=== PATIENT | male | born 1965 | race Caucasian/White ===

== ENCOUNTER 2019-05-06 00:44 | Outpatient (CLI) | payer BC, SELFPAY ==
--- NOTE | 2019-05-06 07:03 | DI.RAD_ITS ---
SYMPTOM/DIAGNOSIS: RT HIP INJECTION, ARTHRITIS RT HIP, PRIMARY OA, M16.11 RIGHT HIP INJECTION: Fluoroscopy Time: 10.3 seconds Fluoroscopy was utilized by Dr. Booth during the performance of a right hip injection. Please refer to the procedure report for complete details. A single hard copy image shows contrast confirming an intra-articular location.
--- NOTE | 2019-05-06 09:43 | W.PROCNOTE ---
Date of service: 05/06/19 Time of Service: 09:43 Procedure Note Date of procedure: 05/06/19 Procedure: Right Hip Injection with Fluoroscopic Guidance Surgeon/Proceduralist/Physician: Kevin Booth Procedure Diagnosis: Right Hip Impingement Procedure Indications: Rch has had persistent pain of the RIGHT hip and groin. He has had success with a previous injection and other conservative measures have been tried. To serve as therapeutic, an injection under fluoroscopy was recommended. I had discussed the risks of the procedure and the patient elected to proceed. Procedure Description: Thony was greeted in the flouroscopy room. The correct side was identified and the consent was reviewed with the patient and signed. The patient was then placed in the supine position on the fluoroscopy table. The RIGHT hip was then prepped with Chloraprep. The anterolateral injection starting point was identiifed by bony landmarks and fluoroscopy. The skin and soft tissue in the tract of the injection was anesthetized with 1% Lidocaine. A spinal needle was then inserted deep into the hip joint at the level of the lateral femoral neck under fluoroscopic guidance. A small amount of Omnipaque solution was injected to confirm intraarticular placement. Once confirmed, the hip was injected with 6cc of 0.5% Bupivicaine and 80mg of Depo-Medrol. A bandaid was placed on the injection site. The patient tolerated the procedure well and noted improvement in pre-injection pain.
[2019-05-06] MEDS: Omnipaque 300 MG/ML 10 ML BTL IJ (10:42)
[2019-05-06] MEDS: Bupivacaine 0.5% Pres-Free 10 ML VIAL IJ (10:43)
[2019-05-06] MEDS: methylPREDNISolone ACETATE 80 MG/ML VIAL IM (10:44)
== END 2019-05-06 01:04 ==
PROVIDERS: Visit Provider Student in an Organized Health Care Education/Training Program
DX: M16.11 Unilateral primary osteoarthritis, right hip (principal); M25.551 Pain in right hip
CPT/HCPCS: 20610; 77002; J1040

== ENCOUNTER 2019-10-06 13:34 | Outpatient (CLI) | payer BC, SELFPAY ==
--- NOTE | 2019-10-06 14:00 | DI.RAD_ITS ---
EXAM: XR PELVIS AP INDICATION: right hip DJD. COMPARISON: RT HIP COMPLETE AP PELVIS from 12/09/2016 TECHNIQUE: 2D digital imaging was performed. FINDINGS: Joint spaces appear symmetric and well maintained. The bones are normally mineralized. The soft tis sues are unremarkable.
== END 2019-10-06 13:54 ==
PROVIDERS: Visit Provider Student in an Organized Health Care Education/Training Program
DX: M16.11 Unilateral primary osteoarthritis, right hip (principal)
CPT/HCPCS: 72170

== ENCOUNTER 2019-10-06 13:54 | Outpatient (CLI) | payer BC, SELFPAY ==
--- NOTE | 2019-10-06 13:07 | HPE_ITS ---
Assessment and Plan Assessment and plan (1) Degenerative joint disease of right hip: Status: Chronic Assessment and plan: Plan: AP pelvis x-ray with mag marker was ordered for pre-operative planning. Patient is a reliable historian and denies any areas of skin breakdown along the left groin and anterior leg. Educated patient that if they develop any lesions, redness or skin breakdown to contact office as skin concerns would be a reason to cancel surgery. Patient gives verbal understanding. Educated patient on surgery covering surgical technique via models, recovery process, benefits and risks including but not limited to risk of infection, blood clot, fracture, numbness/tingling, leg discrepancy and damage to soft tissue/blood vessels/nerves in detail. After discussion patient gives verbal understanding of risks and elects to proceed with scheduling surgery. Patient had opportunity to have questions answered to their satisfaction. They will contact office if issues arise. Patient will continue to be scheduled for right total hip replacement with Dr. Booth. Qualifiers: Osteoarthritis type: primary Qualified Code(s): M16.11 - Unilateral primary osteoarthritis, right hip History of Present Illness Narrative: Mr. Cortés presents to clinic for pre-operative visit for scheduled right SHLOMO with Dr. Booth. Patient has been experiencing right hip pain for several years. Describes intermittent right hip pain located along the groin as well as laterally. In addition states referred pain down to knee as well as a numbness and tingling along the lateral side of his hip down to the knee that has been ongoing for a few years. Denies any radiation of symptoms down to the foot. Pain is described as intermittent based on sitting position and with movement. He has had to significantly reduce exercises due to pain. Denies any pain on stairs or with getting dressing. Denies any trauma to the right hip. Recently started taking CBD oil which helps reduce his day-to-day discomfort. Reports his injections under fluroscopy provide complete relief for approximately 2 months; his last injection was done on 05/06/19. Denies any recent falls or injuries. Due to his continued pain and DJD he was offered surgical intervention and elected to proceed. Pertinent Surgical Information Denies past medical history of: Hypertension, stroke, cardiac issues, angina, asthma, COPD, sleep apnea, renal issues, liver issues, hepatitis, gastrointestinal issues, ulcers, hyperlipidemia, bleeding disorders, seizures, migraines, anxiety, depression, diabetes, autoimmune disorders, thyroid issues Denies prior complications from surgery or anesthesia. Review of Systems Constitutional Constitutional: Denies fever(s), Denies frequent falls and Denies headache(s) Eyes Eyes: Denies change in vision ENT Ears, Nose, Mouth, and Throat: Denies dizziness, Denies ear discharge, Denies headache(s), Reports epistaxis (left nostril is narrow; reports yearly bloody nose in the left nare), Denies nasal discharge, Denies nasal trauma and Denies sore throat Cardiovascular Cardiovascular: Denies chest pain, Denies rapid heart rate, Denies irregular heart rhythm, Denies palpitations, Denies dyspnea, Denies dyspnea on exertion, Denies orthopnea, Denies paroxysmal nocturnal dyspnea and Denies slow heart rate Respiratory Respiratory: Denies cough, Denies dyspnea, Denies dyspnea on exertion and Denies wheezing Gastrointestinal Gastrointestinal: Denies abdominal pain, Denies melena, Denies hematochezia, Denies constipation, Denies diarrhea, Denies nausea and Denies vomiting Genitourinary Genitourinary: Denies hematuria, Denies dysuria and Denies urinary urgency Musculoskeletal Musculoskeletal: Reports as per HPI, Reports numbness and Reports tingling (see HPI) Neurologic Neurologic: Denies dizziness, Denies frequent falls, Denies headache(s), Reports numbness and Reports tingling (see HPI) Psychiatric Psychiatric: Denies anxiety and Denies depression Endocrine Endocrine: Denies palpitations Allergic/Immunologic Allergic/Immunologic: Denies wheezing [facility] Medical History (Updated 10/06/19 @ 13:50 by Mallory Arriaga) Degenerative joint disease of right hip (Chronic) Surgical History (Updated 10/06/19 @ 13:15 by Mallory Arriaga) S/P left knee surgery (Acute) Reports history of 5 total surgeries in his left knee including complete reconstruction, MCL and ACL Completed in [facility] and [facility] Sep 1982; March and April 1983; Aug 1986 and Oct 2010 Status post tonsillectomy and adenoidectomy (Acute) Social History (Updated 10/06/19 @ 13:16 by Mallory Arriaga) Smoking/Tobacco Use Status: Never Alcohol Intake: current Alcohol Intake frequency: holidays/special occasions only Drug use: Never 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 [employer] Current gender identity: male Meds Home Medications and Allergies Allergies Allergy/AdvReac Type Severity Reaction Status Date / Time No Known Allergies Allergy Unverified 10/06/19 13:16 Exam Const General: cooperative and no acute distress [facility] Head: normal to inspection, normocephalic and atraumatic Ears: external ears normal General nose exam: external nose normal and no nasal discharge Face and sinus: face symmetric Mouth: oral mucosae normal, lip normal, tongue normal and moist mucous membranes Teeth and gingiva: dentition normal Throat: posterior oropharynx normal Eyes General: appearance normal, both eyes and all related structures Pupils: PERRL EOM: EOM intact bilaterally Neck Neck: trachea midline Carotids: normal carotid upstroke Lymphatic: no lymphadenopathy noted Resp Effort & Inspection: normal respiratory effort and able to speak in complete sentences Auscultation: clear to auscultation bilaterally, no rales, no rhonchi and no wheezes Cardio Heart Sounds: S1 normal, S2 normal and no murmurs Pulses: radial pulses present bilaterally Skin General skin exam: no rashes or lesions noted
[2019-10-06 14:38] LABS: HCT 39.9 % (40.0-50.0); HGB 13.6 g/dL (13.5-17.5); Mean Corp. HGB Concentration 34.1 g/dL (32.0-36.0); Mean Corpuscular Hemoglobin 31.1 pg (27.0-33.0); Mean Corpuscular Volume 91.1 fL (80-95); Mean Platelet Volume 9.5 fL (8.0-11.0); Platelet Count 263 x1000/uL (130-400); RBC 4.38 m/cumm (4.50-6.00); RBC Distribution Width 12.9 % (11.8-14.1); White Blood Cell Count 5.57 k/cumm (4.4-10.8)
[2019-10-06 15:38] LABS: BUN 20 mg/dL (7-18); CREATININE 0.93 mg/dL (0.70-1.30); Calcium 9.4 mg/dL (8.5-10.1); Chloride 103 mmol/L (98-107); Glucose 102 mg/dL (74-106); Potassium 4.1 mmol/L (3.5-5.1); Sodium 142 mmol/L (136-145)
== END 2019-10-06 14:14 ==
PROVIDERS: Visit Provider Student in an Organized Health Care Education/Training Program
DX: M25.561 Pain in right knee (principal); M16.11 Unilateral primary osteoarthritis, right hip; Z01.818 Encounter for other preprocedural examination; Z01.812 Encounter for preprocedural laboratory examination
CPT/HCPCS: 36415; 80048; 85027; 86850; 86900; 86901; NC

== ENCOUNTER 2019-10-15 10:32 | Inpatient (IN) | payer BC, SELFPAY ==
[2019-10-06 14:06] VITALS: BP 119/75; PULSE 62; RESP 16; TEMP 37; O2SAT 97
[2019-10-15] VITALS (8 sets, daily range): BP systolic 70–128; BP diastolic 37–83; PULSE 59–73; RESP 11–19; TEMP 36–36.6; O2SAT 95–99
[2019-10-15] MEDS: Lactated Ringers 1,000 ML 80 ML IV ×2 (11:12→16:03)
[2019-10-15] MEDS: Acetaminophen 500 MG TAB 1000 MG PO (11:26)
[2019-10-15] MEDS: Celecoxib 200 MG CAP 400 MG PO (11:26)
[2019-10-15] MEDS: ceFAZolin 2 GM/50 ML BAG IVPB (13:35)
--- NOTE | 2019-10-15 14:50 | DI.RAD_ITS ---
EXAM: XR HIP RT IN OR CLINICAL HISTORY: total hip arthroplasty TECHNIQUE: 2D and realtime digital imaging was performed. Fluoroscopy was provided in the OR COMPARISON: No exams were available for comparison FINDINGS: C-arm fluoroscopy was utilized by Dr. Booth during right total hip joint replacement. Hard copies show the components in good position. IMPRESSION:
--- NOTE | 2019-10-15 15:33 | W.PM.DS.N ---
Date of service: 10/15/19 Time of Service: 15:33 DS: Diagnosis Discharge Diagnosis (1) Degenerative joint disease of right hip: Status: Chronic Discharge Plan Disposition Patient Disposition: HOME Condition: Good Discharge Details Reason For Visit: (R) HIP TOTAL Admit Date/Time: 10/15/19 10:32 Admit Provider: Kevin Booth Attending Provider: Kevin Booth Primary Care Provider: None,None Hospital Course Hospital Course: Patient was admitted to the medical/surgical floor following the procedure. It was tolerated well without any notable medical, surgical, or anesthetic complications. Mobilization began postoperatively. He was voiding spontaneously. Vitals were stable. He was cleared for discharge home. No acute medical issues. Home Meds and New Rx's Prescriptions: New acetaminophen 500 mg tablet 1,000 mg PO Q8H PRN (Reason: pain) Qty: 90 RF: 3 aspirin 81 mg tablet,delayed release (DR/EC) 81 mg PO BID Qty: 60 RF: 0 pantoprazole 40 mg tablet,delayed release (DR/EC) 40 mg PO DAILY Qty: 30 RF: 0 ibuprofen 600 mg tablet 600 mg PO TID PRNQty: 90 RF: 3 oxycodone 5 mg tablet 5 mg PO Q4H Qty: 12 RF: 0 Discharge Instructions Additional Instructions: Dr. Booth?s Total Hip Discharge Instructions Activity: The most important activity is to walk. You should try to take short walks a few times a day. You have no restrictions on movement or positioning, but do not try to force what you do. You will find some stiffness and weakness with hip flexion (lifting your knee). Do not try to strengthen this too early, continue to practice walking and stairs and this will come. - Outpatient physical therapy can be helpful to help return you to a normal gait and improve your flexibility and strength. This can start around 2 weeks. For some patients, it?s not necessary. Usually this is determined at the time of discharge or at the first post-operative visit. - You should wear the RENITA hose on both legs for 2 weeks. Dressing: Keep the surgical dressing in place for at least one week. After the first week it may be removed and replace with light gauze and tape or nothing. It may get wet after 3 days but avoid soaking the dressing. If it gets wet, just lightly pat dry. It is important to always keep some gauze between skin folds, especially when you are sitting. Spend some time with the wound exposed when you are lying flat as the incision does wrinkle onto itself. Medications: - You should take Tylenol and an anti-inflammatory Ibuprofen as your primary pain control medications. These can be taken together every 8 hours or alternated. - You have been prescribed a stronger pain medication Oxycodone for breakthrough pain, take as needed as prescribed. - You have also been prescribed a stomach acid reduction agent Pantoprozole to help reduce stomach acid and reflux. You will start this on the day after you return home. - You will be taking Aspirin 81mg twice a day for DVT prevention unless instructed otherwise. - If you have constipation you should take Colace or Miralax (both [id number]). It takes most people 3-4 days to have a bowel movement. Follow-up: 2 weeks Referrals: Kevin Booth MD [ [facility] STAFF PHYSICIAN] - Activity:: Activity as Tolerated Equipment/Supplies:: Walker Diet:: As Tolerated Discharge Orders Discharge Orders: Discharge Order (Routine); Ordered 10/15/19 Ordered By: Kevin Booth DS: Summary Status at Discharge Functional status at discharge: uses cane/walker Overall status at discharge: patient is progressing back to baseline Mental Status: mental status grossly normal Speech and Movement: speech and movement normal Mood: congruent mood Affect: normal affect Exam Psych Mental Status: mental status grossly normal Speech and Movement: speech and movement normal Mood: congruent mood Affect: normal affect DS: Data Vitals/I&O Vitals and I&O: Vital Signs Temperature 36.6 C 10/15/19 10:54 Pulse 59 L 10/15/19 10:54 Pulse Rhythm Regular 10/15/19 10:54 Respiratory Rate 18 10/15/19 10:54 Respiratory Effort Non-Labored 10/15/19 10:54 Respiratory Depth Normal 10/15/19 10:54 Respiratory Pattern Normal 10/15/19 10:54 Blood Pressure 128/83 10/15/19 10:54 Pulse Oximetry 99 10/15/19 10:54 Oxygen Delivery Method Room Air 10/15/19 10:54 Oxygen Flow Rate 0 10/15/19 10:54 Intake & Output 10/14/19 10/15/19 10/15/19 23:59 11:59 23:59 Intake Total 920 / 920 Output Total 300 / 300 Balance 620 / 620 Weight 77.2 kg Intake: IV 920 / 920 Output: Estimated Blood Loss 300 / 300 PFS Medical History Degenerative joint disease of right hip (Chronic) Surgical History S/P left knee surgery (Acute) Reports history of 5 total surgeries in his left knee including complete reconstruction, MCL and ACL Completed in 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
--- NOTE | 2019-10-15 17:54 | NUR.NOTE ---
Nursing Note: Patient admitted to Med/Surg room 226 from PACU via his bed at 1608
--- NOTE | 2019-10-16 07:59 | ROE_ITS ---
Date of service: 10/15/19 Time of Service: 15:59 Operative Note Operative Note DATE OF PROCEDURE: 10/15/19 PRE-OP DIAGNOSIS: Right Hip Osteoarthritis POST-OP DIAGNOSIS: same PROCEDURE: Right Anterior Total Hip Arthroplasty SURGEON: Kevin Booth IMAGING ADMINISTRATOR: Mallory Arriaga ANESTHESIA: spinal ESTIMATED BLOOD LOSS: 300 PATHOLOGY: none sent TOURNIQUET TIME: 0 COMPLICATIONS: None Patient was transported to: PACU Patient's condition: stable Implants: 1. Depuy Hensley Acetabular Component, 52 mm 2. Depuy Acetabular Liner, 52 x 32 mm 3. Depuy Corail coxa vara femoral Stem, Size 12 4. Depuy Altrx Ceramic Femoral Head, Size 32+5 mm Indications: I have seen Thony in clinic for symptoms of hip arthritis, confirmed with radiographic findings. Thony has exhausted nonoperative methods and was having significant limitations in daily function and desired better function and less pain. I discussed the technical details of a hip replacement. I explained the risks of the procedure to include, but not limited to, bleeding, infection, pain, stiffness, fracture, damage to nerves and vessels, damage to muscles and tendons, loosening, instability, leg length inequality, need for repeat procedure, blood clot and cardiopulmonary demise. Despite these risks, Thony elected to proceed. Findings: There was notable focal chondromalacia over the superior femoral head with complete loss of cartilage in a trough-like formation. There was an extended lateral neck with osteophyte formation and tearing of the superior labrum with chondromalacia of the superior acetabulum. Procedure Description: Thony was greeted in the preoperative holding area where the correct side was identified and marked. The consent was reviewed with the patient and signed. The history and physical was updated. All questions were answered. He was taken back to the operating room. A spinal anesthestic was then administered. The patient was placed into the supine position on the operating room table. The patient was then positioned onto the ARCH table. Both feet were wrapped with Webrill cotton wrap along with Coban. The feet were placed in specialized boots for the ARCH table, well seated within the boot and secured. SCDs were applied. The patient was then slid down onto a peroneal post and the nonoperative leg was secured in a leg stahl attached to the table. The operative side was placed into the ARCH table attachment and bed height and positioning was secured. A preoperative AP pelvis was obtained to serve as a reference for determining leg lengths. Prophylactic antibiotics in the form of cefazolin were administered. 1g of Tranxemic Acid was given intravenously within 30 minutes of incision. The right leg was then prepped with Chloraprep and draped in a standard fashion. A second prep with Chloraprep was performed prior to placement of a shower-curtain type drape with Iodine impregnated skin protection. A timeout to confirm correct identity, side and site, procedure, allergies, anesthesia, and medical concerns was performed. An obliquely oriented incision was made starting lateral to the ASIS and running distal over the Tensor Fascia Lena (TFL) muscle belly toward the fibular head, approximately 10cm. The skin and soft tissue was dissected sharply, through Pepper?s fascia, and to the fascia of the TFL. With the fascia and superior border of the IT band identified, the fascia was incised with a new knife just above any perforators from the IT band. The TFL muscle belly was bluntly dissected away from the fascia and moved laterally. The fat between TFL and rectus was identified to ensure the dissection was not within the TFL. Blunt dissection created space between abductors and the capsule and retractor was placed over the lateral femoral neck. The fibers of the rectus femoris tendon were identified and these were freed from the anterior capsule. A second cobra retractor was placed around the medial femoral neck. The TFL was further retr acted laterally to show the deep fascia. Careful dissection through this layer identified three main crossing vessels of the lateral femoral circumflex. These were cauterized in multiple locations and then cut without any noticeable bleeding. The TFL was further released bluntly from the deep fascia to expose anterior hip capsule and fat the Rajendra orthopaedic retractor was then placed beneath the TFL and against sartorius and medial soft tissues to protect and retract the soft tissues. A T-capsulotomy was then performed starting at the superior lateral acetabulum and moving distally to the intertrochanteric ridge. These capsular flaps were tagged with a No. 1 Ethibond and elevated from within. The capsular flaps were released to the shoulder of the lateral neck and to the lesser trochanter to give excellent visualization of the proximal femur. A neck osteotomy was performed using an oscillating saw based on preoperative templates. This cut started in the shoulder and of the lateral neck and exited medially. The saw was at all times directed medially to avoid injury to the greater trochanter. 6cm of traction was applied to the leg and the osteotomy opened. The femoral head was removed with a corkscrew, making sure to protect the TFL on its exit. This was measured on the back table to determing the starting reamer size. An anterior retractor was placed over the anterior wall between capsule and labrum and attached to the Gripper retraction system. A posterior retractor was placed similarly. This provided excellent visualization. The contents of the cotyloid fossa were removed with electrocautery and the labrum was removed with a knife. The superior labrum was noted to be torn. There is some chondromalacia seen over the superior acetabulum at the lateral edge. The femoral head was also inspected which showed a gouge of cartilage missing from the superior femoral head. Acetabular reaming began with a 48 mm reamer. This first reaming was directed anterior to posterior and medial to get down to the true floor. This was inspected and reamed until the true floor was reached. I then reamed sequentially up to a 52 mm reamer where good fit was obtained. The larger reamers were oriented based on anatomical reference of the anterior and lateral candelario to ensure proper abduction and anteversion. Positioning and size was confirmed with the fluoroscopy. A 52 mm Depuy Hensley acetabular component was selected. The acetabulum was reamed around the periphery with the selected acetabular size to prevent a rim fit. The deep tissues were irrigated. The acetabular component was then impacted in a position of about 40-45 degrees of abduction and 15-20 degrees of anteversion, using the patient?s anatomy as the ultimate landmark. Fluoroscopy was used to confirm this. There was excellent retail sales associate bilingual of the acetabular component and the inserting handle was removed. The acetabular liner, Depuy 52 x 32 mm polyethylene liner, was inserted and l ined up with the tines of the acetabular component. There was no soft tissue interposition. The liner was then impacted into position and confirmed to be well-seated. A portion of the ana-articular cocktail was then injected around the acetabulum into the capsule and periosteum. This cocktail consisted of 50cc of 0.25% Bupivicaine and 20cc of Exparel, expanded to a total of 120cc. Traction was released from the femur. The leg was rotated to 120 degrees. Any remaining medial capsule was released until the lesser trochanter was easily palpable. A Roca retractor was placed medially. The lateral capsule was further released into the shoulder to allow access to the greater trochanter. A Roca retractor was placed over the greater trochanter which allowed the trochanter to flip in front of the capsule for excellent exposure. The leg was brought down into maximal extension and 20 degrees of adduction while ensuring there was no impingement on the acetabulum. Any remnant capsule within the trochanter was released. Piriformis and obturator externis were identified and protected. There was excellent access to the proximal femur. The lateral neck remnant was removed with a rongeur. A blunt canal probe was used to identify the canal and trajectory for later broaching. A box osteotome initiated the broach course. A small curved rasp and a curved curette were used to work laterally. Broaching then began with a size 8 Corail broach. This was inserted manually around the trochanter and into the canal before mallet blows. The broach was seated to a few millimeters below the cut level based on the neck cut and the preoperative template. Sequential broaching was continued until a tight fit was obtained with good rotational control of the femur. A trial coxa vara neck was inserted along with a +5 trial head. The leg was brought out of extension and adduction and then reduced with traction and internal rotation. The leg was stable anteriorly in a position of 30 degrees of extension and 90 degrees of external rotation. Fluoroscopy was used to ensure there was no fracture and the stem was seated well. Leg lengths were checked with an AP pelvis and pelvic reference points using the assistance of joint point. Once content with the desired offset and leg lengths, the leg was brought back into extension, external rotation and adduction. The periosteum and surrounding tissue was injected with remaining portion of the ana-articular cocktail. The proximal femur was irrigated as well as the deep tissues. The Depuy Corail coxa vara stem, size 12, was then manually inserted into the proximal femur making sure to control rotation. It was then malleted into position with light blows, giving breaks to allow bone expansion and decrease risk of fracture. The selected Depuy Altrx Ceramic Head, size 32+5 mm, was then placed onto the clean and dry trunnion and secured with impaction onto the tapered fit. The leg was brought back out of extension and adduction and reduced with traction and internal rotation. Stability was confirmed with no shuck at 90 degrees of external rotation and 30 degrees of extension. No impingement through range of motion arc. Final x-ray images were obtained with fluoroscopy to confirm adequate positioning and no intraoperative fracture. The deep tissues were thoroughly irrigated with a pulse lavage. The second dose of TXA 1g was administered intravenously. The capsule was then reapproximated with the previously placed Ethibond sutures. The TFL fascia was finally closed with a No. 2 Stratafix, barbed suture. Deep tissues were then reapproximated with 0 Vicryl and a running 2-0 Vicryl. The skin was closed with a running 4-0 Monocryl in a subcuticular fashion. This was reinforced with skin glue. A Mepilex silver dressing was applied. At the end of the case, all counts were correct. Thony was transferred to the hospital bed without difficulty and suffering no apparent complication. Thony has a good prognosis. Physical therapy will start today and without restrictions, weight-bearing as tolerated. Aspirin 81mg BID will be used for DVT prophylaxis.
== END 2019-10-15 17:53 | disposition home or self-care (01) | DRG 470 ==
LOC: PDS 15:35 → MS 16:22
PROVIDERS: Admitting Provider Student in an Organized Health Care Education/Training Program; Visit Provider Student in an Organized Health Care Education/Training Program
PROC: 0SR904A Replacement of Right Hip Joint with Ceramic on Polyethylene Synthetic Substitute, Uncemented, Open Approach (ICD-10-PCS; CPT 27130; principal; 2019-10-15 13:15)
DX: M16.11 Unilateral primary osteoarthritis, right hip (principal); M25.551 Pain in right hip; Z96.641 Presence of right artificial hip joint
CPT/HCPCS: 27130; NC; 73501; J0131; J0690; J1100; J1885; J2250; J2405; J3010

== ENCOUNTER 2019-10-28 11:21 | Outpatient (CLI) | payer BC, SELFPAY ==
--- NOTE | 2019-10-28 11:36 | DI.RAD_ITS ---
EXAM: XR HIP RT COMPLETE AP PELVIS CLINICAL HISTORY: 1ST POST OP TECHNIQUE: COMPARISON: XR PELVIS AP from 10/06/2019 FINDINGS: Two views were obtained and show total hip joint replacement in position on the right. The componen ts appear well seated. No other significant bony abnormality seen. IMPRESSION:
== END 2019-10-28 11:41 ==
PROVIDERS: Visit Provider Physician Assistant
DX: Z96.641 Presence of right artificial hip joint (principal); Z47.1 Aftercare following joint replacement surgery
CPT/HCPCS: 73502

== ENCOUNTER 2019-11-25 08:45 | Outpatient (CLI) | payer BC, SELFPAY ==
--- NOTE | 2019-11-25 08:40 | DI.RAD_ITS ---
EXAM: XR HIP RT AP LAT ONLY CLINICAL HISTORY: PAIN TECHNIQUE: COMPARISON: XR HIP RT COMPLETE AP PELVIS from 10/28/2019 FINDINGS: Two views were obtained and show total hip joint replacement in position. The components appear well seated. No other significant bony abnormality seen. IMPRESSION:
== END 2019-11-25 09:05 ==
PROVIDERS: Visit Provider Student in an Organized Health Care Education/Training Program
DX: Z96.641 Presence of right artificial hip joint (principal); Z47.1 Aftercare following joint replacement surgery
CPT/HCPCS: 73502

== ENCOUNTER 2020-01-06 09:43 | Outpatient (CLI) | payer BC, SELFPAY ==
--- NOTE | 2020-01-06 09:19 | DI.RAD_ITS ---
EXAM: XR STANDING ALIGNMENT CLINICAL HISTORY: F/U [place]. TECHNIQUE: 2D digital imaging was performed. Standing AP views were performed from above the iliac c rest through the ankles. COMPARISON: XR HIP RT AP LAT ONLY from 11/25/2019 FINDINGS: There is a right total hip prosthesis. There is a leg length discrepancy with the acetabular componen t of the prosthesis projecting superior to the left femoral head. The right knee joint spaces are wel l maintained. There are advanced degenerative changes of the medial femoral tibial joint of the left knee with some varus angulation. The ankle joints show mild degenerative changes no significant narro wing. IMPRESSION: Severe degenerative changes of the left knee. Right hip prosthesis. Leg length discrepancy. DATA REPOSITORY: RADIATION DOSE DELIVERED:
== END 2020-01-06 10:03 ==
PROVIDERS: Visit Provider Student in an Organized Health Care Education/Training Program
DX: M17.12 Unilateral primary osteoarthritis, left knee (principal); Z96.641 Presence of right artificial hip joint; Z47.1 Aftercare following joint replacement surgery; M21.70 Unequal limb length (acquired), unspecified site
CPT/HCPCS: 77073

== ENCOUNTER 2020-03-06 09:53 | Outpatient (CLI) | payer BC, SELFPAY ==
--- NOTE | 2020-03-06 09:30 | DI.RAD_ITS ---
EXAM: XR HIP RT 1V CLINICAL HISTORY: Evaluate anterior cup prominence TECHNIQUE: COMPARISON: CR XR HIP RT AP LAT ONLY from 11/25/2019 FINDINGS: Single cross-table lateral view was obtained and shows total hip joint replacement in position. Requ isition raises the possibility of anterior cup prominence, no gross increased prominence of anterior cup margin is seen. I would note that CT evaluation would be more accurate in assessing the angulation of the acetabular component. IMPRESSION:
== END 2020-03-06 10:13 ==
PROVIDERS: Visit Provider Student in an Organized Health Care Education/Training Program
DX: Z96.641 Presence of right artificial hip joint (principal); M76.11 Psoas tendinitis, right hip
CPT/HCPCS: 73501

== ENCOUNTER → 2022-04-09 01:19 | Outpatient (CLI) | payer BC, SELFPAY ==
--- NOTE | 2022-04-09 08:00 | DI.RAD_ITS ---
Exam(s) XR KNEE LT 3V AP,LAT,CONCETTA EXAM: XR KNEE LT 3V AP,LAT,CONCETTA CLINICAL HISTORY: left knee pain,ARTHRITIS,M17.12. TECHNIQUE: 2D digital imaging was performed. COMPARISON: CR LEFT KNEE 4+ VIEWS from 12/09/2016 FINDINGS: Four views There is no evidence of fracture or obvious joint effusion. However, there are significant tricompar tmental osteoarthritic degenerative changes, as previously present 2017 with some mild further progre ssion. Also chondrocalcinosis again noted in the medial lateral compartments. The most prominent na rrowing is in the medial compartment, as previously present; perhaps slightly further increased. Als o advanced findings in the patellofemoral compartment although somewhat difficult to compare as there is no merchant's view on the present study. IMPRESSION: Advanced osteoarthritic degenerative changes, as described above. DATA REPOSITORY: RADIATION DOSE DELIVERED:
== END ==
PROVIDERS: Visit Provider Student in an Organized Health Care Education/Training Program
DX: M17.12 Unilateral primary osteoarthritis, left knee (principal)
CPT/HCPCS: 73562

== ENCOUNTER 2022-12-01 15:10 | Emergency (ER) | payer BC, SELFPAY ==
[2022-12-01 15:07] VITALS: BP 193/97; PULSE 71; RESP 24; TEMP 36.4; O2SAT 93
--- OUTSIDE RECORDS SUMMARY | 2022-12-01 15:34 | XMS_ITS | Continuity of Care Document ---
:1965 Author Organization [facility] e Address [address] [place] [address] Care Team Providers Name Role Phone Wei LUONG, Sabra Primary Care Physician Encounter [facility] NBR [id number] Date(s): 09/27/22 - 09/27/[address] [address] Encounter Diagnosis Pain in right leg (Discharge Diagnosis) - 09/27/22 Discharge Disposition: Home or Self Care Attending Physician: Sabra Carvajal MD Admitting Physician: Sabra Carvajal MD Referring Physician: Sabra Carvajal MD Allergies, Adverse Reactions, Alerts No Known Medication Allergies Assessment and Plan Future AppointmentsFuture Scheduled TestsLaboratoryPSA Diagnostic 08/27/23 RadiologyMRI Spine Lumbar w/o Contrast 09/11/22 Medications albuterol 90 mcg/inh aerosol inhaler 1 puffs, Inhale, every 4 hr, PRN not specified, 1 Unknown, 0 Refill(s) Start Date: 08/21/22 Status: Orderedfinasteride 5 mg oral tablet 5 mg = 1 tab, Oral, Daily, 1 Unknown, # 90 tab, 3 Refill(s), Pharmacy: [facility] #[id number] Start Date: 08/27/22 Status: OrderedFish Oil 500 mg oral capsule 1 Unknown, 0 Refill(s) Start Date: 08/21/22 Status: OrderedGlucosamine Chondroitin See Instructions, as directed, 0 Refill(s) Start Date: 09/11/22 Status: Orderedmultivitamin adult, oral tablet 0 Refill(s) Start Date: 08/21/22 Status: Orderedtamsulosin 0.4 mg oral capsule 0.8 mg = 2 cap, Oral, Daily, # 180 cap, 3 Refill(s), Pharmacy: [facility] #[id number] Start Date: 08/27/22 Status: Ordered Problem List Condition Confirmation Course Effective Dates Status Health Stat us Informant Abnormal auditory Confirmed Active perception Anxiety1 Confirmed Active 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 Procedures Procedure Date Related Diagnosis Body Site Status Hip replacement 2019 Completed Adenotonsillectomy Completed Arthroscopy of knee1 Complet ed 1X5 Results Laboratory List Name Date Basic Metabolic Panel (BMP) 09/27/22 Lipid Panel 09/27/22 Most recent to oldest [Reference Range]: 1 BUN [8-26 mg/dL] 21 mg/dL (09/27/22 1:26 PM) Cholesterol Total [129-209 mg/dL] 220 mg/dL *HI* (09/27/22 1:26 PM) LDL 130.6 *NA* (09/27/22 1:26 PM) Glucose Level [74-106 mg/dL] 90 mg/dL (09/27/22 1:26 PM) Potassium Level [3.5-5.1 mmol/L] 4.0 mmol/L (09/27/22 1:26 PM) HDL [40-80 mg/dL] 79 mg/dL (09/27/22 1:26 PM) Osmolality [275-295 mOsm/kg] 278 mOsm/kg (09/27/22 1:26 PM) Sodium Level [134-143 mmol/L] 138 mmol/L (09/27/22 1:26 PM) Chol/HDL 2.8 *NA* (09/27/22 1:26 PM) Triglycerides [10-150 mg/dL] 53 mg/dL (09/27/22 1:26 PM) Calcium Level [8.9-10.3 mg/dL] 9.5 mg/dL (09/27/22 1:26 PM) CO2 [22-32 mmol/L] 27 mmol/L (09/27/22 1:26 PM) eGFR Non-AA 100 *NA* (09/27/22 1:26 PM) eGFR AA 100 *NA* (09/27/22 1:26 PM) Chloride Level [98-111 mmol/L] 102 mmol/L (09/27/22 1:26 PM) BUN/Creat Ratio [8.0-20.0] 23.3 *HI* (09/27/22 1:26 PM) Creatinine Level [0.61-1.24 mg/dL] 0.90 mg/dL (09/27/22 1:26 PM) Anion Gap [3.0-12.0] 9.0 (09/27/22 1:26 PM) Radiology Reports Exam Date Time Procedure Performing Provider Status 09/27/22 1:41 PM XR Spine Lumbosacral 2 or 3 Views Rosemarie Alex (Verified) Notes:(XR Spine Lumbosacral 2 or 3 Views) Reason For Exam: pain and weakness to right legXR Spine Lumbosacral 2 or 3 Views EXAM DESCRIPTION: XR Spine Lumbosacral 2 or 3 Views 09/27/2022 INDICATION: PAIN AND WEAKNESS TO RIGHT LEG COMPARISON: None IMPRESSION: No acute fracture. Mild retrolisthesis at L2-3. Lumbar lordosis is otherwise satisfactory. Mild levoscoliosis centered in the mid-lumbar region Spondylotic changes throughout the lumbar spine with intervertebral disc space narrowing and mild endplate osteophyte formation No significant SI joint asymmetry Status post right hip arthroplasty, incompletely visualized. JOB #: [id number] Final Signed by: Derrell Urban MD Signed (Electronic Signature): 09/27/2022 1:49 pm Social History Social History Type Response Tobacco Never tobacco user Tobacco U se:. Sex XR Spine Lumbar and Sacrum GE 2 Views Derrell Urban MD: VERIFY, VERIFY Event Display: Report EXAM DESCRIPTION: XR Spine Lumbosacral 2 or 3 Views 09/27/2022 INDICATION: PAIN AND WEAKNESS TO RIGHT LEG COMPARISON: None IMPRESSION: No acute fracture. Mild retrolisthesis at L2-3. Lumbar lordosis is otherwise satisfactory. Mild levoscoliosis centered in the mid-lumbar region Spondylotic changes throughout the lumbar spine with intervertebral disc space narrowing and mild endplate osteophyte formation No significant SI joint asymmetry Status post right hip arthroplasty, incompletely visualized. JOB #: [id number] Final Signed by: Derrell Urban MD Signed (Electronic Signature): 09/27/2022 1:49 pm Patient Care team information PersonnelName: Sabra Carvajal MD Address: Address: [address] [place] [address]
--- OUTSIDE RECORDS SUMMARY | 2022-12-01 15:34 | XMS_ITS ---
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 48 02658491762 ear Problem Abnormal auditory 388.40 Active 60 722645 perception Problem Urinary hesitancy R39.11 Active 59 68344 Problem BPH with N40.1 Active obstruction/lower urinary tract symptoms Problem Annual physical Z00.00 Active 7831 8003 exam Problem Benign prostatic N40.1 Active 300 50111315181 hyperplasia with lower urinary tract symptoms Problem Anxiety F41.9 Active 03350296 Problem Mild intermittent J45.20 Active 42 3431619 asthma without complication ALLERGIES Substance Reaction Event Type Date Status Seasonal Unknown Non Drug Allergy Jul, Active ENCOUNTERS Encounter Location Date Diagnosis [facility] [address] [place] [address] Jan, BPH with [address] obstructi on/lower urinary [id number] tract symptoms N 40.1 [facility] [address] [place] [address] Dec, BPH with [address] obstructi on/lower urinary 581231422 tract symptoms N 40.1 [facility] [address] [place] [address] Aug, [address] [id number] [facility] [address] [place] [address] Aug, [address] [id number] [facility] [address] [place] [address] Aug, BPH with [address] obstructi on/lower urinary [id number] tract symptoms N 40.1 [facility] [address] [facility] Jul, BPH with [facility] [address] [place] [address] obstructi on/lower urinary [id number] tract symptoms N 40.1 [facility] [address] [facility] May, BPH with [facility] [address] [place] obstructi on/lower urinary [id number] tract symptoms N 40.1 [facility] [address] [facility] Nov, [place] [id number] [address] Nov, Enc ounter for screening [place], [place] [id number] for COVI D-19 Z11.52 [facility] [address] [facility] Sep, [place] [id number] [address] Sep, [place] [id number] [address] Sep, Enc ounter for screening [place], [place] [id number] laborato ry testing for COVID-19 virus Z 20.828 [facility] Aug, [address] [id number] [facility] [address] [facility] Jun, [address] [id number] [facility] [address] [place] [address] May, BPH with [facility] [address] [place] [address] obstructi on/lower urinary 326491020 tract symptoms N 40.1 [facility] [address] [facility] May, [place], [place] [id number] [address] May, [place] [id number] [address] Mar, Uri nary hesitancy R39.11 [place], [place] [id number] [address] Mar, Uri nary hesitancy R39.11 [place], [place] [id number] ; Mild i ntermittent asthma without complication J45 .20 and Encounter to [facility] Z76.89 [facility] [address] [facility] Aug, Healthcare Op [place] [id number] [address] Aug, Anx iety F41.9 [place], [place] [id number] [facility] [address] [address] Jun, Noa ual physical exam [place], [place] [id number] Z00.00 a nd Benign prostatic hyperp lasia with lower urina ry tract symptoms N40.1 [facility] [address] [facility] [address] Jun, Noa ual physical exam [place], [place] [id number] Z00.00 a nd Benign prostatic hyperp lasia with lower urina ry tract symptoms N40.1 [facility] [address] [address] Apr, [place] [id number] [address] Apr, [place] [id number] [address], Oct, Abnorm [facility] [address] perce ption NOS 388.40 [facility] [id number] [address], Oct, Abnorm [facility] [address] perce ption 388.40 and [facility] [place] Tinnitus of right ear [id number] 388.30 IMMUNIZATIONS No Known Immunizations SOCIAL HISTORY Never Assessed REASON FOR REFERRAL FUNCTIONAL STATUS PLAN OF CARE Activity Details Follow Up 1 Year Reason: Future Test PSA - DIAGNOSTIC 20220731 Future Test COVID 19 SCREENING PCR (1399 00) [id number] VITAL SIGNS Height 69 in 2021-07-31 Height 69 in 2020-06-19 Height 69 in 2020-04-04 Height 69 in 2017-07-24 Height 69 in 2017-07-03 Height 69 in 2014-11-24 Weight 173.0 lb lbs 2021-07-31 Weight 171.2 lbs 2020-06-19 Weight 171 lbs 2020-04-04 Weight 167 lbs 2017-07-24 Weight 168.4 lbs 2017-07-03 Weight 170 lbs 2014-11-24 Temperature 96.0 degrees Fahrenheit 2021-07-31 Temperature 96.7 degrees Fahrenheit 2020-06-19 Heart Rate 84 /min 2021-07-31 Heart Rate 67 /min 2020-06-19 Heart Rate 66 /min 2020-04-04 Heart Rate 78 /min 2017-07-24 Heart Rate 80 /min 2017-07-03 Heart Rate 70 /min 2014-11-24 Oximetry 97 2021-07-31 Oximetry 96 2020-06-19 Oximetry 96 2017-07-24 Oximetry 96 2017-07-03 Respiratory Rate 12 /min 2020-04-04 Respiratory Rate 16 /min 2014-11-24 BMI 25.54 kg/m2 2021-07-31 BMI 25.28 kg/m2 2020-06-19 BMI 25.25 kg/m2 2020-04-04 BMI 24.66 kg/m2 2017-07-24 BMI 24.87 kg/m2 2017-07-03 BMI 25.10 kg/m2 2014-11-24 Blood pressure systolic 112 mm Hg 2021-07-31 Blood pressure diastolic 64 mm Hg 2021-07-31 MEDICATIONS Medication Instructions Dosage Frequency Start End Duration Statu s Date Date Tamsulosin HCl Orally q hs 2 capsules 90 days Ac tive 0.4 MG diazePAM 10 MG Orally Once a 1 tablet as 24h Aug, 2 days Not-Takin day needed 2016 Multi Complete Active - Tamsulosin HCl TAKE 2 90 Active 0.4 MG CAPSULES BY MOUTH AT BEDTIME Albuterol Inhalation every 1 puff as 4h Mar, days Act johnna Sulfate HFA 108 4 hrs needed 2019 (90 Base) MCG/ACT Finasteride 5 Orally Once a 1 tablet 24h Jul, days Act johnna MG day 2020 Fish Oil 500 MG Orally Once a 1 capsule 24h - g PROCEDURES Procedure Date Ordered Result Body Site BLADDER SCAN Jun 19, 2020 URINALYSIS NONAUTO W/O SCOPE Jun 19, 2020 RESULTS Name Result Date Reference Range COVID 19 SCREENING PCR (527797) 2020-12-06 SARS-CoV-2, CARY Not Detected Not Detected COVID 19 SCREENING PCR (574112) 2020-10-16 SARS-CoV-2, CARY Not Detected Not Detected UA Multistix (URO) 2020-06-19 Color Yellow Clarity Clear Bilirubin neg Ketones neg Specific [place] 1.015 Blood neg Glucose neg ph 7.0 Protein neg Leukocytes neg Nitrates neg Uro 0.2 Leukocytes Bladder Scan 2020-06-19 PSA - SCREENING 2020-04-04 PSA (SCREEN) 0.933 <=4.000 CBC, WITH AUTO DIFF 2017-07-04 WBC 3.7 4.8-10.8 RBC 4.40 4.70-6.10 HGB 13.5 14.0-18.0 HCT 40.1 42.0-52.0 MCV 91.1 80.0-94.0 MCH 30.7 27.0-31.0 MCHC 33.7 32.0-37.0 RDW-CV 13.5 11.5-14.5 PLT 262 130-400 MPV 9.6 7.4-10.4 NE% 57.4 42.2-75.2 LY% 30.5 20.5-51.1 MO% 10.7 1.7-9.3 EO% 1.1 0.9-2.9 BA% 0.3 0.0-0.8 NE# 2.2 1.4-6.5 LY# 1.1 1.2-3.4 MO# 0.4 0.1-0.6 EO# 0.0 0.0-0.2 BA# 0.0 0.0-0.2 TSH 2017-07-04 TSH 1.31 0.45-5.33 LIPID PROFILE 2017-07-04 CHOLESTEROL 264 129-209 TRIGLYCERIDES 40 10-150 HDL 95 40-80 LDL (CALCULATED) 161 RISK RATIO 2.8 RISK INTERP RISK MALE FEMALE 1/2 average 3.4 3.3 Average 5.0 4.4 2x Average 9.6 COMPREHENSIVE METABOLIC PROFILE 2017-07-04 SODIUM 136 136-145 POTASSIUM 4.4 3.5-5.1 CHLORIDE 99 98-111 CO2 30 22-32 CALCIUM 9.6 8.9-10.3 BUN 24 8-26 CREATININE 0.81 0.61-1.24 TOTAL BILIRUBIN 1.1 0.3-1.2 TOTAL PROTEIN 6.9 6.5-8.1 ALBUMIN 4.7 3.5-5.0 ALKALINE PHOS 37 38-130 AST 22 15-41 ALT 22 17-63 A/GAP 7.0 3.0-12.0 B/CR 29.6 8.0-20.0 OSMOLARITY 276 275-295 GLOBULIN 2.2 2.3-3.5 A/G 2.1 1.0-2.5 URINALYSIS DIP w/REFLEX MICRO 2017-07-04 COLOR Light yellow YELLOW CLARITY Clear CLEAR SPECIFIC GRAVITY 1.010 1.000-1.030 pH 6.5 5.0-8.0 PROTEIN Negative NEGATIVE GLUCOSE Negative NEGATIVE KETONES Negative NEGATIVE UROBILINOGEN 0.2 E.U./dL 0.2 E.U./DL BILIRUBIN Negative NEGATIVE BLOOD Negative NEGATIVE LEUKOCYTES Negative NEGATIVE NITRITES Negative NEGATIVE REASON FOR VISIT URO- 1 YR F/U, Finasteride Rf, Tamsulosin cost , pharmacy denying refill, Medication refill , refillmed, URO Yearly F/U, Medication refill- 5 days left , results, COV Test, Results, COV results, COVID, URO 3MO F/U, update, Voiding Diary, URO - decreased urinary flow/hesitancy, Letter re mask, referral request, results, PC - Re-Est Care (Oni Pt), Colonoscopy Screening, PC-3 wk f/up labs, PC - CUSTOMER SUPPORT ANALYST, PC - CUSTOMER SUPPORT ANALYST, pre load, Needs CUSTOMER SUPPORT ANALYST appointment (bartolomet msg), AUD audio, right ear crackling and feeling full for6 months Insurance Providers [facility] Health Member Patient Patient Patient Patient Patient Subscriber Subscriber Subscriber Group Insurance Plan Plan Plan Plan ID Relationship Address Phone Name Date of ID Name Date of No Type Insurance Insurance Insurance Coverage to Subscriber Address Phone Name Dates [place] [phone] [place] self Devin 1965 [id number] [place] [address] [address] [place] [address] [facility] - [address] [facility] - self Devin 1965 DO NOT [facility] DO NOT [facility] ([place] (Write [place]) [place] [address] Off) [place] [phone] [place] self Devin 1965 [id number] [place] [address] [place] [address] [place] [address]
--- OUTSIDE RECORDS SUMMARY | 2022-12-01 15:34 | XMS_ITS ---
:1965 Author Organization [facility] Address [address] [place] [address] Care Team Providers Name Role Phone Jessi Rock Unavailable Unavailable PROBLEMS Type Condition ICD9-CM [id number] Onset Condition SNOMED Cod e Code Code Dates Status Problem Benign prostatic N40.1 Active 300 28195571363 hyperplasia with lower urinary tract symptoms Problem Plantar wart of B07.0 Active 1224 3417999805260 left foot Problem Anxiety F41.9 Active 16328366 Problem Mild J45.20 Active 067702507 intermittent asthma without complication Problem Tinnitus of H93.11 Active 79966878 29760 right ear Problem Abnormal H93.299 Active 44343046 auditory perception Problem Urinary R39.11 Active 2736647 hesitancy ALLERGIES Substance Reaction Event Type Date Status seasonal Unknown Non Drug Allergy Jul, Active ENCOUNTERS Encounter Location Date Diagnosis [facility] [address] [facility] [address] Jul, [place] [address] B07.0 [facility] [address] [facility] [address] Jun, [place] [address] B07.0 [facility] [address] [facility] [address] May, [place] [address] B07.0 IMMUNIZATIONS No Known Immunizations SOCIAL HISTORY Qualifiers Date Never Smoker REASON FOR REFERRAL FUNCTIONAL STATUS PLAN OF CARE Activity Details Follow Up 2 Weeks Reason: VITAL SIGNS Height 69 in 2020-08-02 Height 69 in 2020-06-28 Height 69 in 2020-06-14 Weight 170 lbs 2020-08-02 Weight 165.1 lbs 2020-06-28 Weight 165 lbs 2020-06-14 BMI 25.10 kg/m2 2020-08-02 BMI 24.38 kg/m2 2020-06-28 BMI 24.36 kg/m2 2020-06-14 Temperature 97.3 degrees Fahrenheit 2020-08-02 Temperature 97.8 degrees Fahrenheit 2020-06-28 Temperature 97.8 degrees Fahrenheit 2020-06-14 Heart Rate 79 /min 2020-08-02 Heart Rate 66 /min 2020-06-28 Heart Rate 65 /min 2020-06-14 Respiratory Rate 107/69 /min 2020-08-02 Respiratory Rate 18 /min 2020-06-28 Respiratory Rate 18 /min 2020-06-14 Oximetry 97 % 2020-06-28 Oximetry 94 % 2020-06-14 Blood pressure systolic 111 mm Hg 2020-06-28 Blood pressure diastolic 76 mm Hg 2020-06-28 MEDICATIONS Medication Instructions Dosage Frequency Start End Duration Statu s Date Date Albuterol Inhalation every 1 puff as 4h Act johnna Sulfate HFA 4 hrs needed 108 (90 Base) MCG/ACT Tamsulosin HCl Orally Once a 1 capsule 24h 30 day(s) Not-Takin 0.4 MG day g PROCEDURES Procedure Date Ordered Result Body Site DESTRUCT BENIGN LESION, 11-09Aug 02, 2020 DESTRUCT BENIGN LESION, 11-09Jun 14, 2020 RESULTS No Results REASON FOR VISIT planta wart left foot, referral done, f/u for plantar wart, referral done, pt states that he is herefor wart f/u, pt states that the wart is uncomfortable at this point, but not painful like it was, he is wondering if the rest of the wart can just be cut out , pt states that he has a spot on the backofthe left heel that he would like looked at today, pt states that he noticed that bump on the heel about two weeks after he got home from a hike, while its not painful he would like to know why its there. , f/u for plantar wart, pt states that he is here for wart f/u , pt states that he had pain for a couple days after last treatment, but it wasn't to bad , plantar wart left foot referral done, new pod pt , pt states that he is here for a plantar wart on the left foot , pt states that the wart has been present since the start of summer , pt states that he tried OTC wart medication, and that it didn't seem to have any impact , pt states that the wart is making it uncomfortable to walk in socks or just barefoot Insurance Providers [facility] Health Member Patient Patient Patient Patient Patient Subscriber Subscriber Subscriber Group Insurance Plan Plan Plan Plan ID Relationship Address Phone Name Date of ID Name Date of No Type Insurance Insurance Insurance Coverage to Subscriber Address Phone Name Dates SELF PAY [address] ST[address] SELF PAY ASHLYN 1965 AFTER [place] [address] [employer] [phone] [employer] self ASHLYN 1965 [id number] OF [facility] 4^[place] [address] [place] [id number]
--- OUTSIDE RECORDS SUMMARY | 2022-12-01 15:34 | XMS_ITS | Continuity of Care Document ---
:1965 Author Organization [facility] e Address [address] [place] [address] Care Team Providers Name Role Phone Sabra Carvajal MD Primary Care Physician Encounter [facility]BR [id number] Date(s): 08/27/22 - 08/27/[address] [address] [place] Discharge Disposition: Home or Self Care Attending Physician: Teetee Sánchez MD Admitting Physician: Teetee Sánchez MD Allergies, Adverse Reactions, Alerts No Known Medication Allergies Assessment and Plan Future AppointmentsFuture Scheduled TestsLaboratoryPSA Diagnostic 08/27/23 Medications albuterol 90 mcg/inh aerosol inhaler 1 Unknown, 0 Refill(s) Start Date: 08/21/22 Status: Orderedfinasteride 5 mg oral tablet 5 mg = 1 tab, Oral, Daily, 1 Unknown, # 90 tab, 3 Refill(s), Pharmacy: [id number] Start Date: 08/27/22 Status: OrderedFish Oil 500 mg oral capsule 1 Unknown, 0 Refill(s) Start Date: 08/21/22 Status: Orderedmultivitamin adult, oral tablet 0 Refill(s) Start Date: 08/21/22 Status: Orderedtamsulosin 0.4 mg oral capsule 0.8 mg = 2 cap, Oral, Daily, # 180 cap, 3 Refill(s), Pharmacy: [id number] Start Date: 08/27/22 Status: Ordered Problem List Condition Confirmation Course Effective Dates Status Health Stat us Informant Abnormal auditory Confirmed Active perception Anxiety Confirmed Active Benign prostatic Confirmed Active hyperplasia with outflow obstruction Delay when starting Confirmed Active to pass urine Lower urinary tract Confirmed Active symptoms due to benign prostatic hypertrophy Mild intermittent Confirmed Active asthma Tinnitus of right Confirmed Active ear Procedures Procedure Date Related Diagnosis Body Site Status Hip replacement 2019 Completed Adenotonsillectomy Completed Arthroscopy of knee1 Complet ed 1X5 Results Laboratory List Name Date PSA Diagnostic 08/27/22 Most recent to oldest [Reference Range]: 1 PSA Total Diagnostic [<=4.000 ng/mL] 0.738 ng/mL (08/27/22 9:32 AM) Social History Social History Type Response Tobacco Never tobacco user Tobacco U se:. Sex Patient Care team information PersonnelName: Sabra Carvajal MD Address: Address: [address] [place] [address]
--- OUTSIDE RECORDS SUMMARY | 2022-12-01 15:34 | XMS_ITS | Continuity of Care Document ---
:1965 Author Organization [facility] Address [address] [place] [address] Care Team Providers Name Role Phone Sabra Carvajal MD Primary Care Physician Encounter [facility] [id number] Date(s): 08/27/22 - 08/27/22 [facility] [address] [place] [place] [address] Encounter Diagnosis BPH (benign prostatic hyperplasia) (Discharge Diagnosis) - 08/27/22 Discharge Disposition: Home or Self Care Attending Physician: Teetee Sánchez MD Allergies, Adverse Reactions, Alerts No Known Medication Allergies Assessment and Plan Future AppointmentsFuture Scheduled TestsLaboratoryPSA Diagnostic 08/27/23 Functional Status 08/27/22 Living Environment Home Environment No qualifying data available Other exposure to Infectious Disease None Medications albuterol 90 mcg/inh aerosol inhaler 1 Unknown, 0 Refill(s) Start Date: 08/21/22 Status: Orderedfinasteride 5 mg oral tablet 5 mg = 1 tab, Oral, Daily, 1 Unknown, # 90 tab, 3 Refill(s), Pharmacy: [id number] Start Date: 08/27/22 Status: OrderedFish Oil 500 mg oral capsule 1 Unknown, 0 Refill(s) Start Date: 08/21/22 Status: Orderedmultivitamin adult, oral tablet 0 Refill(s) Start Date: 08/21/22 Status: Orderedtamsulosin 0.4 mg oral capsule 0.8 mg = 2 cap, Oral, Daily, # 180 cap, 3 Refill(s), Pharmacy: [id number] Start Date: 08/27/22 Status: Ordered [...] ed 1X5 Results Laboratory List Name Date .Urinalysis POCT 08/27/22 Most recent to oldest [Reference Range]: 1 Method of Collect POC Clean Catch *NA* (08/27/22 8:42 AM) Specific [place], Ur POC 1.025 *NA* (08/27/22 8:42 AM) Specimen Color POC [Yellow] Yellow (08/27/22 8:42 AM) Glucose, Urine POC Negative mg/dL *NA* (08/27/22 8:42 AM) Bilirubin, Urine POC [Negative] Negative (08/27/22 8:42 AM) Ketones, Urine POC [Negative mg/dL] Negative mg/dL (08/27/22 8:42 AM) Blood, Urine POC [Negative] Negative (08/27/22 8:42 AM) pH, Urine POC 7.0 *NA* (08/27/22 8:42 AM) Protein, Urine POC [Negative mg/dL] Negative mg/dL (08/27/22 8:42 AM) Urobilinogen, Urine POC [0.2] 0.2 (08/27/22 8:42 AM) Nitrite, Urine POC [Negative] Negative (08/27/22 8:42 AM) Leuk Esterase, Urine POC [Negative] Negative (08/27/22 8:42 AM) Clarity, Urine POC [Clear] Clear (08/27/22 8:42 AM) Vital Signs Most recent to oldest [Reference Range]: 1 Temperature Temporal Artery [36-38 Deg C] 36.0 Deg C (08/27/22 8:44 AM) Apical Heart Rate [60-100 bpm] 66 bpm (08/27/22 8:44 AM) Respiratory Rate [12-24 br/min] 12 br/min (08/27/22 8:44 AM) Blood Pressure [90-140/60-90 mmHg] 122/80 mmHg (08/27/22 8:44 AM) Weight 78 kg (08/27/22 8:44 AM) Weight Measured (lbs) 171.96 lb (08/27/22 8:44 AM) Fries Body Weight Calculated 70.465 kg (08/27/22 8:44 AM) Height 175 cm (08/27/22 8:44 AM) Height/Length Measured (inches) 68.9 inch (08/27/22 8:44 AM) BSA Measured 1.95 m2 (08/27/22 8:44 AM) Body Mass Index 25.47 kg/m2 (08/27/22 8:44 AM) Social History Social History Type Response Tobacco Never tobacco user Tobacco U se:. Sex Patient Care team information PersonnelName: Sabra Carvajal MD Address: Address: [address] [place] [address]
--- OUTSIDE RECORDS SUMMARY | 2022-12-01 15:34 | XMS_ITS | Continuity of Care Document ---
:1965 Author Organization [facility] Ambulatory Clinics Address [address] [place] [address] Care Team Providers Name Role Phone Sabra Carvajal MD Primary Care Physician Encounter [id number] NBR [id number] Date(s): 09/11/22 - 09/11/22 [facility] Ambulatory Clinics [address], [place] [id number] Encounter Diagnosis Left knee pain (Discharge Diagnosis) - 09/11/22 Low back pain radiating to right lower extremity (Discharge Diagnosis) - 09/11/22 Pain in right leg (Discharge Diagnosis) - 09/11/22 Lower extremity weakness (Discharge Diagnosis) - 09/11/22 Skin lesion (Discharge Diagnosis) - 09/11/22 Screening for cardiovascular condition (Discharge Diagnosis) - 09/11/22 Screening for diabetes mellitus (Discharge Diagnosis) - 09/11/22 Well adult exam (Discharge Diagnosis) - 09/11/22 Discharge Disposition: Home or Self Care Attending Physician: Sabra Carvajal MD Allergies, Adverse Reactions, Alerts No Known Medication Allergies Assessment and Plan Future AppointmentsFuture Scheduled TestsLaboratoryBasic Metabolic Panel 09/11/22Lipid Panel 09/11/22PSA Diagnostic 08/27/23RadiologyMRI Spine Lumbar w/o Contrast 09/11/22XR Spine Lumbosacral 2 or 3 Views 09/11/22 Functional Status 09/11/22 Other exposure to Infectious Disease None Medications albuterol 90 mcg/inh aerosol inhaler 1 puffs, Inhale, every 4 hr, PRN not specified, 1 Unknown, 0 Refill(s) Start Date: 08/21/22 Status: Orderedfinasteride 5 mg oral tablet 5 mg = 1 tab, Oral, Daily, 1 Unknown, # 90 tab, 3 Refill(s), Pharmacy: [id number] Start Date: 08/27/22 Status: OrderedFish Oil 500 mg oral capsule 1 Unknown, 0 Refill(s) Start Date: 08/21/22 Status: OrderedGlucosamine Chondroitin See Instructions, as directed, 0 Refill(s) Start Date: 09/11/22 Status: Orderedmultivitamin adult, oral tablet 0 Refill(s) Start Date: 08/21/22 Status: Orderedtamsulosin 0.4 mg oral capsule 0.8 mg = 2 cap, Oral, Daily, # 180 cap, 3 Refill(s), Pharmacy: [facility][id number] Start Date: 08/27/22 Status: Ordered Problem List [...] Completed Arthroscopy of knee1 Complet ed 1X5 Vital Signs Most recent to oldest [Reference Range]: 1 Peripheral Pulse Rate [60-100 bpm] 77 bpm (09/11/22 8:19 AM) Blood Pressure [90-140/60-90 mmHg] 110/80 mmHg (09/11/22 8:19 AM) Weight 79.4 kg (09/11/22 8:19 AM) Weight Measured (lbs) 175.047 lb (09/11/22 8:19 AM) [place] Body Weight Calculated 70.7 kg (09/11/22 8:19 AM) Height 175.26 cm (09/11/22 8:19 AM) Height/Length Measured (inches) 69 inch (09/11/22 8:19 AM) BSA Measured 1.97 m2 (09/11/22 8:19 AM) Body Mass Index 25.85 kg/m2 (09/11/22 8:19 AM) Social History Social History Type Response Tobacco Never tobacco user Tobacco U se:. Sex Physician Outpatient Note Sabra Carvajal MD: PERFORM Event Display: Office Clinic Note Physician Authored Date: [id number] ASHLYN TRUJILLO :1965 Age:56 years Sex:Male Visit Date:09/11/2022 Primary Care Physician: Sabra Carvajal MD Chief Complaint Annual History of Present Illness Patient does see urology and has recently had a PSA. ??He takes regular medications for BPH,??no other prescription medications.?? He exercises regularly and is very active.?? Denies chest pain, lightheadedness, edema, palpitations, or shortness of breath. ?? A few weeks ago patient??started developing some pain in his right lower back??and the pain radiated down the buttock into the right??thigh.?? He was seen in an urgent care and given a course of steroid.?? This did help with the pain??quite a bit. ??Does not really have any issues??with the pain now??but he was able to start exercising again??and he has noticed??considerable weakness??in the quadriceps on the right when compared to the left.?? He is??able to lift much less weight with that side now??even though the pain is improved.?? No saddle anesthesia,??or changes in bladder or bowel control. ??He is able to walk and move just fine??and has not had any falls or near falls. ?? Also, patient mentions that he has 2 dark skin lesions that his ??believes are changing and getting larger. ??No history of skin cancer. ??He does tend to flores??not burn. ??No family history of melanoma. Physical Exam Vitals & Measurements HR:??77??(Peripheral)?? BP:??110/80?? SpO2:??94%?? HT:??175.26??cm?? WT:??79.4??kg?? BMI:??25.85?? BSA:??1.97?? General: Alert and oriented, well nourished, no acute distress. Eye: EOMI, normal conjunctiva. HENT: Normocephalic, clear tympanic membranes, moist oral mucosa, no scleral icterus Neck: Supple, non-tender, ??no lymphadenopathy. Lungs: Clear to auscultation, non-labored respiration. Heart: Normal rate, regular rhythm, no murmur Abdomen: Soft, non-tender, non-distended, no HSM Skin: Left flank with roughly??8 mm??hyperpigmented lesion??with smaller area of darker??pigmentation roughly??2 mm.?? Left back??with 8 mm raised??rough hyperpigmented lesion. Neurologic: Bilateral lower extremities with grossly normal sensation and strength. ??Gait normal. Psychiatric: Cooperative, appropriate mood and affect. Assessment/Plan 1.??Left knee pain??M25.562 Patient does have chronic left knee pain and he is seeing orthopedics for this. ??Happy with his current treatment. ?? 2.??Low back pain radiating to right lower extremity??M54.50 The pain has improved??but patient notices weakness??in the right thigh when he does his weight training as he is very active. ??So will obtain x-ray and MRI refer to neurosurgery. Ordered: MRI Spine Lumbar w/o Contrast, 09/11/22, Routine, Reason: pain in lower back and pain and weakness in right thigh, No, Yes, Transport Mode: Ambulatory, Low back pain radiating to right lower extremity Lower extremity weakness XR Spine Lumbosacral 2 or 3 Views, 09/11/22, Routine, Reason: pain and weakness to right leg, Transport Mode: Ambulatory, Low back pain radiating to right lower extremity Lower extremity weakness ?? 3.??Lower extremity weakness??R29.898 Ordered: MRI Spine Lumbar w/o Contrast, 09/11/22, Routine, Reason: pain in lower back and pain and weakness in right thigh, No, Yes, Transport Mode: Ambulatory, Low back pain radiating to right lower extremity Lower extremity weakness XR Spine Lumbosacral 2 or 3 Views, 09/11/22, Routine, Reason: pain and weakness to right leg, Transport Mode: Ambulatory, Low back pain radiating to right lower extremity Lower extremity weakness ?? 4.??Skin lesion??L98.9 Skin lesions??most consistent with seborrheic keratoses??but as one does have uneven coloration and believes they are getting larger would recommend excisional biopsy. ??Patient told to make appointment for this. ?? 5.??Screening for cardiovascular condition??Z13.6 Ordered: Lipid Panel, Blood, Routine, 09/11/22, Once, Lab Collect, Screening for cardiovascular condition, Order for future visit ?? 6.??Screening for diabetes mellitus??Z13.1 Ordered: Basic Metabolic Panel, Blood, Routine, 09/11/22, Once, Lab Collect, Screening for diabetes mellitus, Order for future visit ?? 7.??Well adult exam??Z00.00 ?? Pain in right leg??M79.604 ?? Future Orders Basic Metabolic Panel, Blood, Routine, 09/11/22, Once, Lab Collect, Screening for diabetes mellitus, Order for future visit Lipid Panel, Blood, Routine, 09/11/22, Once, Lab Collect, Screening for cardiovascular condition, Order for future visit MRI Spine Lumbar w/o Contrast, 09/11/22, Routine, Reason: pain in lower back and pain and weakness in right thigh, No, Yes, Transport Mode: Ambulatory, Low back pain radiating to right lower extremity Lower extremity weakness XR Spine Lumbosacral 2 or 3 Views, 09/11/22, Routine, Reason: pain and weakness to right leg, Transport Mode: Ambulatory, Low back pain radiating to right lower extremity Lower extremity weakness Referral Orders Referral Management, Medical Service: Neurological Surgery, Reason: Pain in right lower back with pain and weakness into right thigh, Start: 09/11/22, Instructions: Dr. Shaw Problem List/Past Medical History Ongoing Abnormal auditory perception Anxiety Benign prostatic hyperplasia with outflow obstruction Delay when starting to pass urine Elevated fasting glucose GERD (gastroesophageal reflux disease) Left knee pain Low back pain radiating to right lower extremity Lower extremity weakness Lower urinary tract symptoms due to benign prostatic hypertrophy Mild intermittent asthma Skin lesion Tinnitus of right ear Historical No qualifying data Procedure/Surgical History ???Hip replacement (2019)???Adenotonsillectomy???Arthroscopy of knee Medications albuterol 90 mcg/inh aerosol inhaler, 1 puffs, Inhale, every 4 hr, PRN finasteride 5 mg oral tablet, 5 mg= 1 tab, Oral, Daily, 3 refills Fish Oil 500 mg oral capsule Glucosamine Chondroitin, See Instructions multivitamin adult, oral tablet tamsulosin 0.4 mg oral capsule, 0.8 mg= 2 cap, Oral, Daily, 3 refills Allergies No Known Medication Allergies Social History Alcohol Current Electronic Cigarette/Vaping Electronic Cigarette Use: Never. Tobacco Never tobacco user Tobacco Use:. Family History CHF - Congestive heart failure: Father. Diabetes mellitus: Father. Hearing loss: Mother. Health Maintenance ?Pending??(in the next year) ?Due?Adult Wellness Exam due?09/11/22?and every 1?years ?Alcohol Use Screening due?09/11/22?and every 1?years ?Asthma - Education due?09/11/22?and every 6?months ?Asthma - Spirometry due?09/11/22?and every 2?years ?Asthma - [place] Flow due?09/11/22?and every 6?months ?Asthma - Written Action Plan due?09/11/22?and every 1?years ?Colorectal Cancer Screening due?09/11/22?Variable frequency ?Depression Screening due?09/11/22?and every 1?years ?Glaucoma Screening due?09/11/22?and every 1?years ?HIV Screening due?09/11/22?and every 1?years ?Hepatitis C Screening due?09/11/22?One-time only ?Satisfied??(in the past 1 year) ?Satisfied?Body Mass Index on?09/11/22.?Satisfied by Paty Vergara ?Prostate Cancer Screening on?08/27/22.?Satisfied by Maura Boles ?? Electronically Signed on 09/11/22 09:42 AM Sabra Carvajal MD Patient Care team information PersonnelName: Sabra Carvajal MD Address: Address: [address] [place] [phone]
--- NOTE | 2022-12-01 15:48 | ED.GENADUL_ITS ---
Discharge Plan Disposition Patient Disposition: Home Condition: Improving Discharge Details Clinical Impression: Lumbar back pain with radiculopathy affecting right lower extremity Primary Care Provider: Unknown,Unknown ED Provider: Gabriele Solorio Home Meds and New Rx's Prescriptions: New methylprednisolone [Medrol (Joel)] 4 mg tablets,dose pack See Rx Instructions .ROUTE .COMPLEX Qty: 21 0RF Rx Instructions: orally per package directions cyclobenzaprine 10 mg tablet 10 mg PO TID PRNQty: 10 0RF oxycodone-acetaminophen [Percocet] 5-325 mg tablet 1 tab PO TID PRNQty: 8 0RF Continued tamsulosin 0.4 mg capsule 0.4 mg PO DAILY finasteride 5 mg tablet 5 mg PO DAILY acetaminophen 500 mg tablet 1,000 mg PO Q8H PRN (Reason: pain) Qty: 90 3RF ibuprofen 600 mg tablet 600 mg PO TID PRNQty: 90 3RF Discharge Instructions Instructions: Lumbar Radiculopathy (ED) Additional Instructions: You have responded well to the medications and are comfortable with discharge home. Flexeril, Medrol Dosepak, Percocet as directed, both Percocet and Flexeril may cause drowsiness. Percocet may also cause constipation, you may want to take an dzsy-rvg-[id number] stool softener. Take sqyj-cgr-[id number] ibuprofen 800 mg every 8 hours. Do not exceed 4 g of Tylenol daily, Percocet has a component of Tylenol in it. Gentle stretching as tolerated. Cool and/or warm compresses every 2 hours for 20 minutes. Please watch for new or worsening symptoms and return to the ER for any concerns. I cannot stress the importance that you contact your primary care provider tomorrow to make them aware of your ER visit and ongoing symptoms, need for outpatient reevaluation as well as set up the MRI that has already been written for by your PCP. I also recommend reaching out to the spinal pain clinic that you have been referred to. Medical Decision Making This is a otherwise healthy 57-year-old gentleman who reports a past medical history of chronic back pain, L4-5 issues as well as L5-S1 issues. Patient states that he has opted for nonoperative therapy but over the past several months his symptoms have been worsening both in frequency and in severity. Patient states that he has had previous severe episodes that have required steroids, using a walker, and physical therapy. He states that today he was putting on ski boots, bending over, felt pain in his leg, attempted to walk and his leg gave out. EMS called, and prior to arrival he was given 300 of fentanyl and 2 of Ativan. Patient and family both report this is very similar to previous episodes. He states that he was in the process of having an outpatient MRI through his PCP but his overall symptoms seem to be improving and he did not pursue the MRI. Denies fever, abdominal pain, bowel incontinence, dysuria, saddle paresthesias, IV drug use. Patient states 1 episode last week, severe pain causing himself to urinate because he could not get to the restroom fast enough. No IV drug use. He is afebrile, neurologically intact although does report paresthesias in his right upper leg as well as some shooting down to his posterior right lower leg. Examination not consistent with cauda equina. Will obtain routine laboratory values and provide IV Solu-Medrol and Toradol. Given there is no trauma, likely little value of x-ray or CT imaging. Patient was observed in the ER for over an hour. At times he is sleeping and appears comfortable but wakes quickly and screams in pain. Both patient and family are concerned for his severe pain and will not be able to care for him at home, question if he will require admission. They also feel as though if he is admitted he could have his MRI tomorrow. I discussed the case with Dr. Partida who recommended IV Tylenol, Lidoderm patches, a muscle relaxer, then reassessment. Patient was given IV Tylenol, Lidoderm patch and Norflex. Patient was quite somnolent for approximately 2 hours. No surprise given the amount of medications he was provided. Patient was observed in the ER for over 4-1/2 hours. Patient is now awake and talkative, able to ambulate slowly but steadily to the restroom using a walker. He reports that his pain is significantly improved, he denies any altered sensation of his legs whatsoever. Bladder scan prevoid 325, post residual bladder scan 0 Discussed options with patient and the family. He states again that he has had similar severe symptoms like this before. He is to be set up for an outpatient MRI already and has not followed up with the pain clinic as he was directed to. He states typically steroids help and he does have a walker at home. Patient feels well enough to be discharged home and his is comfortable taking him home in his current condition. Clinically he now appears well, neurologically intact. I will provide a take-home pack of Percocet and Flexeril. I will provide a prescription for Medrol Dosepak, Percocet, Flexeril. We discussed kyww-jay-gnjnawq anti-inflammatory medication as well. We discussed the importance of outpatient follow-up through his PCP, pain clinic, and obtaining the MRI that he has been delaying. Strict discharge and return precautions were provided. Patient understands, is agreeable to this plan, and has no additional questions or concerns upon discharge. This documentation was generated using [employer] system, please disregard any oddities of phrase or misspellings. Medical Records Medical records reviewed: Yes I reviewed the patient's medical records. Lab Data Lab results reviewed: Yes I reviewed the patient's lab results. Labs: Laboratory Tests Range/Units 12/01/22 12/01/22 12/01/22 15:55 15:55 16:10 WBC (4.4-10.8) 10^3/uL 8.97 RBC (4.36-5.78) 10^6/uL 4.51 Hgb (13.5-17.5) g/dL 13.7 Hct (40.0-50.0) % 41.3 MCV (80-95) fL 92 MCH (27.0-33.0) pg 30.4 MCHC (32.0-36.0) % 33.2 RDW (11.8-14.1) % 12.5 Plt Count (130-400) 10^3/uL 260 MPV (8.0-11.0) fL 9.5 Immature Gran % 0.3 Neutrophils % 82.1 Lymphocytes % 11.6 Monocytes % 5.4 Eosinophils % 0.3 Basophils % 0.3 Nucleated RBC % (0.0-0.3) % 0.0 Absolute Neutrophils (1.2-6.7) 10^3/uL 7.36 H Absolute Lymphocytes (1.2-3.4) 10^3/uL 1.04 L Absolute Monocytes (0.1-0.8) 10^3/uL 0.48 Absolute Eosinophils (0.0-0.7) 10^3/uL 0.03 Absolute Basophils (0.0-0.2) 10^3/uL 0.03 Sodium (136-145) mmol/L 141 Potassium (3.5-5.1) mmol/L 3.3 L Chloride (98-107) mmol/L 103 Carbon Dioxide (21.0-32.0) mmol/L 29.5 Anion Gap (3-11) mmol/L 8.5 BUN (7-18) mg/dL 17 Creatinine (0.70-1.30) mg/dL 1.0 Est GFR (CKD-EPI 2020) (mL/min/1.73m2) 87.24 Glucose (74-106) mg/dL 140 H Calcium (8.5-10.1) mg/dL 9.1 Total Bilirubin (0.2-1.0) mg/dL 0.5 AST (15-37) U/L 24 ALT (16-63) U/L 35 Alkaline Phosphatase (46-116) U/L 50 Total Protein (6.4-8.2) g/dL 7.3 Albumin (3.4-5.0) g/dL 4.5 Urine Color (Yellow) Yellow Urine Clarity (Clear) Clear Urine pH (5-8) 7.0 Ur Specific [place] (1.005-1.025) 1.020 Urine Protein (Negative) mg/dL Negative Urine Ketones (Negative) mg/dL Negative Urine Blood (Negative) Negative Urine Nitrite (Negative) Negative Urine Bilirubin (Negative) Negative Urine Urobilinogen (Up TO 0.2) EU/dL 0.2 Ur Leukocyte Esterase (Negative) Negative Urine Glucose (Negative) mg/dL Negative HPI General Mode of arrival: EMS . Date/Time Provider Initiated Documentation: 12/01/22 15:30 . Limitations to Documentation: no limitations . Information obtained by: patient and family . History of Present Illness 57 year old M presents to the emergency department with the chief complaint of R back/leg pain, described as severe and similar to prior episodes, with intensity rated at 10. Quality is described as sharp, and is localized to the back, right and lower extremity. Patient extremity. Patient started experiencing this hour(s) (1) and it has been constant. No relieving factors improve symptom(s), Movement worsens symptoms . Patient notes no other symptoms.. Patient did receive the following treatments prior to arrival, other (EMS gave fentanyl and Ativan) Related Data Home Medications Medication Instructions Recorded Confirmed acetaminophen 500 mg tablet 1,000 mg PO Q8H PRN pain #90 tabs 10/15/19 12/01/22 ibuprofen 600 mg tablet 600 mg PO TID PRN #90 tabs 10/15/19 12/01/22 tamsulosin 0.4 mg capsule 0.4 mg PO DAILY 09/24/21 12/01/22 finasteride 5 mg tablet 5 mg PO DAILY 08/14/22 12/01/22 cyclobenzaprine 10 mg tablet 10 mg PO TID PRN #10 tabs 12/01/22 methylprednisolone 4 mg tablets in See Rx Instructions PO .COMPLEX 12/01/22 a dose pack (Medrol (Joel)) #21 dose pk oxycodone-acetaminophen 5 mg-325 1 tab PO TID PRN #8 tabs 12/01/22 mg tablet (Percocet) Previous Rx's Medication Instructions Recorded acetaminophen 500 mg tablet 1,000 mg PO Q8H PRN pain #90 tabs 10/15/19 ibuprofen 600 mg tablet 600 mg PO TID PRN #90 tabs 10/15/19 cyclobenzaprine 10 mg tablet 10 mg PO TID PRN #10 tabs 12/01/22 methylprednisolone 4 mg tablets in See Rx Instructions PO .COMPLEX 12/01/22 a dose pack (Medrol (Joel)) #21 dose pk oxycodone-acetaminophen 5 mg-325 1 tab PO TID PRN #8 tabs 12/01/22 mg tablet (Percocet) Allergies Allergy/AdvReac Type Severity Reaction Status Date / Time No Known Allergies Allergy Unverified 12/01/22 15:17 General Stated Complaint: Orthopedic JO: 3 Review of Systems Constitutional Constitutional: Denies fatigue, Denies fever(s) and Denies weakness ENT Ears, Nose, Mouth, and Throat: Denies neck pain Cardiovascular Cardiovascular: Denies chest pain and Denies dyspnea Respiratory Respiratory: Denies dyspnea Gastrointestinal Gastrointestinal: Denies abdominal pain, Denies fecal incontinence, Denies nausea and Denies vomiting Genitourinary Genitourinary: Denies hematuria, Denies dysuria, Denies scrotal swelling, Denies testicular pain and Reports urinary incontinence (x 1 last week secondary to pain, unable to get to the restroom fast enough) Musculoskeletal Musculoskeletal: Denies neck pain, Denies numbness, Reports stiffness and Reports tingling Integumentary/Breasts Skin/Breast: Denies rash Neurologic Neurologic: Denies numbness, Reports tingling and Denies weakness Endocrine Endocrine: Denies fatigue Hematologic/Lymphatic Hematologic/Lymphatic: Denies easy bleeding and Denies easy bruising PFSH All Active Problems Lumbar back pain with radiculopathy affecting right lower extremity (Acute) Patella-femoral syndrome (Acute) Abnormal auditory perception (Acute 11/24/14) Traumatic arthritis of left knee (Acute) Most recent Depo-Medrol: 09/30/2022; 06/24/2022; 03/22/22; 12/20/2021; 09/24/2021 Psoas tendinitis of right side (Acute) Status post right hip replacement (Acute 10/15/19) Medical History Degenerative joint disease of right hip Femoroacetabular impingement with osteophyte of right hip (10/06/17) Surgical History S/P left knee surgery Reports history of 5 total surgeries in his left knee including complete reconstruction, MCL and ACL Completed in [facility] Sep 1982; March and April 1983; Aug 1986 and Oct 2010 Status post tonsillectomy and adenoidectomy Social History Smoking/Tobacco Use Status: Never Smoking risk assessment performed?: Yes Alcohol Intake: current Alcohol Intake frequency: holidays/special occasions only Drug use: Never Substance use type: does not use 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 Current gender identity: male Exam Const General: cooperative, healthy appearing and other (Uncomfortable) Orientation: alert, awake and oriented x3 HENMT Head: normal to inspection, normocephalic and atraumatic Face and sinus: normal facial exam Mouth: moist mucous membranes Eyes Conjunctivae: conjunctivae normal Neck Neck: normal visual inspection, full ROM, no meningeal signs, trachea midline and supple Resp Effort & Inspection: normal respiratory effort and able to speak in complete sentences Auscultation: clear to auscultation bilaterally Cardio Rate: regular rate Rhythm: regular rhythm GI Inspection: normal to inspection Palpation: soft, not firm, no guarding, no pulsatile masses and nontender Auscultation: normal bowel sounds Male General Exam: Yes normal external exam Other: No saddle paresthesias Back/Spine/Pelvis Back: no CVA tenderness and back tenderness (Diffuse right lumbar discomfort, no midline point tenderness) Other: Straight leg raise positive on the right at 5 degrees, negative on the left Skin General skin exam: no rashes or lesions noted Neuro General: patient alert, patient awake, patient oriented x3, moves all extremities and no focal motor deficits Cognition: normal cognition Speech: speech normal Motor: muscle tone normal throughout Sensory Exam: no sensory deficits noted Extrem General: normal to inspection, capillary refill normal, no pedal edema and no calf tenderness Other: Limited range of motion secondary to discomfort. Normal visual inspection. There is diffuse right hip and upper leg discomfort. Neuro, vascular, tendon intact. Psych Appearance: grossly normal Mental Status: mental status grossly normal Course Vital Signs Vital signs: Vital Signs Temperature 36.4 C L 12/01/22 15:07 Pulse 71 12/01/22 15:07 Respiratory Rate 24 12/01/22 15:07 Blood Pressure 193/97 H 12/01/22 15:07 Pulse Oximetry 93 12/01/22 15:07 Temperature 36.4 C L 12/01/22 15:07 Temperature Source Oral 12/01/22 15:07 Pulse 71 12/01/22 15:07 Respiratory Rate 24 12/01/22 15:07 Respiratory Effort 12/01/22 15:16 Blood Pressure 193/97 H 12/01/22 15:07 Blood Pressure Position Sitting 12/01/22 15:07 Pulse Oximetry 93 12/01/22 15:07 Oxygen Delivery Method Room Air 12/01/22 15:07 Oxygen Flow Rate 0 12/01/22 15:07 Pain Level 5 12/01/22 15:19
[2022-12-01] MEDS: Ketorolac 30 MG/ML VIAL IVP (16:04)
[2022-12-01] MEDS: methylPREDNISolone SUCC 125 MG VIAL IVP (16:05)
[2022-12-01 16:06] LABS: Abs Immature Grans 0.03 10^3/uL (0.0-0.06); Absolute Basophil Count 0.03 10^3/uL (0.0-0.2); Absolute Eosinophil Count 0.03 10^3/uL (0.0-0.7); Absolute Lymphocyte Count 1.04 10^3/uL (1.2-3.4); Absolute Monocyte Count 0.48 10^3/uL (0.1-0.8); Absolute Neutrophil Count 7.36 10^3/uL (1.2-6.7); Basophils % 0.3; Eosinophils % 0.3; HCT 41.3 % (40.0-50.0); HGB 13.7 g/dL (13.5-17.5); Immature Grans % 0.3; Lymphocytes % 11.6; MCH 30.4 pg (27.0-33.0); MCHC 33.2 % (32.0-36.0); MCV 92 fL (80-95); MPV 9.5 fL (8.0-11.0); Monocytes % 5.4; Neutrophils % 82.1; Platelet Count 260 10^3/uL (130-400); RBC 4.51 10^6/uL (4.36-5.78); RDW 12.5 % (11.8-14.1); RDW-SD 42.3 fL; WBC 8.97 10^3/uL (4.4-10.8)
[2022-12-01] MEDS: Normal Saline Flush 10 ML SYR IVP (16:06)
[2022-12-01 16:20] LABS: ALT 35 U/L (16-63); AST 24 U/L (15-37); Albumin 4.5 g/dL (3.4-5.0); Alkaline Phosphatase 50 U/L (46-116); Anion Gap 8.5 mmol/L (3-11); BUN 17 mg/dL (7-18); Bilirubin, Total 0.5 mg/dL (0.2-1.0); CO2 29.5 mmol/L (21.0-32.0); Calcium 9.1 mg/dL (8.5-10.1); Chloride 103 mmol/L (98-107); Estimated GFR 87.24 (mL/min/1.73m2); Glucose 140 mg/dL (74-106); Potassium 3.3 mmol/L (3.5-5.1); Sodium 141 mmol/L (136-145); Total Protein 7.3 g/dL (6.4-8.2)
[2022-12-01 16:30] LABS: Bilirubin Negative (Negative); Blood Negative (Negative); Clarity Clear (Clear); Glucose Negative (Negative); Ketones Negative (Negative); Leukocyte Esterase Negative (Negative); Nitrite Negative (Negative); Urobilinogen 0.2 EU/dL (Up TO 0.2)
[2022-12-01] MEDS: Orphenadrine 60 MG/2 ML VIAL IVP (17:07)
[2022-12-01] MEDS: ACETAMINOPHEN 1,000 MG/100 ML BTL 400 MG IVPB (17:14)
[2022-12-01 19:11] VITALS: BP 163/81; PULSE 79; RESP 12; O2SAT 92
--- NOTE | 2022-12-01 19:33 | NUR.NOTE ---
Nursing Note: pt ambulated to the bathroom and back to room. Post void bladder scan: 0mls
[2022-12-01] MEDS: Lidocaine 5% Patch 1 PATCH TP (20:00)
[2022-12-01] MEDS: Cyclobenzaprine 10 MG TAB, 3 TABS/BTL PO (20:28)
[2022-12-01 20:57] VITALS: BP 154/84; PULSE 80; RESP 16; O2SAT 95
== END 2022-12-01 20:44 | disposition home or self-care (01) ==
PROVIDERS: Emergency Provider Physician Assistant
DX: M54.16 Radiculopathy, lumbar region (principal)
CPT/HCPCS: 80053; 96374; 96375; 99284; J2360; 81003; 85025; J0131; J1885; J2930

== ENCOUNTER 2025-04-05 14:40 | Outpatient (REF) | payer OTHER, SELFPAY ==
[2025-04-05 16:04] LABS: Abs Immature Grans 0.02 10^3/uL (0.0-0.06); Absolute Basophil Count 0.04 10^3/uL (0.0-0.2); Absolute Eosinophil Count 0.29 10^3/uL (0.0-0.7); Absolute Lymphocyte Count 1.03 10^3/uL (1.2-3.4); Absolute Monocyte Count 0.31 10^3/uL (0.1-0.8); Absolute Neutrophil Count 2.69 10^3/uL (1.2-6.7); Basophils % 0.9 %; Eosinophils % 6.6 %; HCT 41.1 % (40.0-50.0); HGB 13.6 g/dL (13.5-17.5); Immature Grans % 0.5 %; Lymphocytes % 23.5 %; MCH 30.4 pg (27.0-33.0); MCHC 33.1 % (32.0-36.0); MCV 92 fL (80-95); MPV 9.8 fL (8.0-11.0); Monocytes % 7.1 %; Neutrophils % 61.4 %; Platelet Count 269 10^3/uL (130-400); RBC 4.47 10^6/uL (4.36-5.78); RDW 12.8 % (11.8-14.1); WBC 4.38 10^3/uL (4.4-10.8)
[2025-04-05 17:19] LABS: C-Reactive Protein < 0.50 mg/dL (<or=0.5)
[2025-04-06 10:26] LABS: Lyme Ab w Rflx to Lyme Confirm Negative (Negative)
== END 2025-04-05 14:41 | disposition home or self-care (01) ==
LOC: LBN 14:40
PROVIDERS: Visit Provider Nurse Practitioner Family
DX: M25.461 Effusion, right knee (principal)
CPT/HCPCS: 85025; 86140; 86618